=== PATIENT | female | born 1975 | race African-American/Black ===

== ENCOUNTER 2023-11-29 23:37 | Emergency (ER) | payer MEDICARE, MEDICAID ==
[~2023-11-29] VITALS: Ht 165.1 cm; Wt 115.0 kg
[2023-11-29 23:57] VITALS: BP 161/73; RESP 21; TEMP 98.9; O2SAT 98
== END 2023-11-30 03:18 | disposition left against medical advice (07) ==
LOC: ER 23:37
DX: K08.89 Other specified disorders of teeth and supporting structures (principal); Z53.21 Procedure and treatment not carried out due to patient leaving prior to being seen by health care provider